=== PATIENT | female | born 2000 | race African-American/Black ===

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

== ENCOUNTER 2021-08-11 02:17 | Emergency (ER) | payer OTHER ==
[2021-08-11] MEDS ORDERED: NA CHLORIDE 0.9% 1,000 ML ONE (02:56)
[2021-08-11] MEDS ORDERED: LABETALOL 20 MG/4ML SYRINGE IV ONE (02:56)
[2021-08-11] MEDS ORDERED: KETOROLAC 30 MG/ML INJ ONE (02:56)
[2021-08-11 03:14] LABS: Urine Blood Negative (Negative); Urine Glucose Negative (Negative); Urine Protein Negative (Negative); Urine Specific Gravity >=1.030 (1.005-1.030)
[2021-08-11 03:33] LABS: Barbiturates NEGATIVE (NEGATIVE); Benzodiazepines NEGATIVE (NEGATIVE); Cocaine NEGATIVE (NEGATIVE); METHAMPHETAM NEGATIVE (NEGATIVE); Methadone NEGATIVE (NEGATIVE); Opiates NEGATIVE (NEGATIVE); Phencyclidine NEGATIVE (NEGATIVE); THC Cannibis POSITIVE (NEGATIVE)
--- NOTE | 2021-08-11 04:23 | ER ---
Nurse's Notes [facility] Name: Hardik Goldstein Age: 20 yrs Sex: Female : 2000 Arrival Date: 08/11/2021 Time: 02:22 Bed 14 Private MD: Diagnosis: Hypertension. Acute headache Presentation: 08/11 02:31 Chief complaint: Patient states: HTN and h/a since yesterday morning. Coronavirus df1 screen: Vaccine status: Patient reports receiving the 2nd dose of the covid vaccine. Client denies travel out of the [place] in the last 14 days. At this time, the client does not indicate any symptoms associated with coronavirus-19. Ebola Screen: Patient negative for fever greater than or equal to 101.5 degrees Fahrenheit, and additional compatible Ebola Virus Disease symptoms Patient denies exposure to infectious person. Patient denies travel to an Ebola-affected area in the 21 days before illness onset. Initial Sepsis Screen: Does the patient meet any 2 criteria? No. Patient's initial sepsis screen is negative. Does the patient have a suspected source of infection? No. Patient's initial sepsis screen is negative. Risk Assessment: Do you want to hurt yourself or someone else? Patient reports no desire to harm self or others. Onset of symptoms was August 10, 2021 at 10:00. 02:31 Method Of Arrival: Ambulatory df1 02:31 Acuity: JENNIFER 3 df1 Triage Assessment: 02:45 General: Appears comfortable, slender, well groomed. dc2 02:45 General: Behavior is calm, cooperative. dc2 02:45 Pain: Also complains of nausea, photophobia. dc2 02:45 Headache History: The patient has had previous headaches and this one is similar to dc2 previous episodes. Pain: Pain began 1 day ago. 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 - Social history:: Smoking status: Patient denies any tobacco usage or history of. Screenin:45 Abuse screen: Denies threats or abuse. Denies injuries from another. Nutritional dc2 screening: No deficits noted. Tuberculosis screening: No symptoms or risk factors identified. 02:45 Fall Risk None identified. No fall in past 12 months (0 pts). No secondary diagnosis (0 dc2 pts). No IV (0 pts). Ambulatory Aid- None/Bed Rest/Nurse Assist (0 pts). Gait- Normal/Bed Rest/Wheelchair (0 pts) Mental Status- Oriented to own ability (0 pts). Total Cedeno Fall Scale indicates No Risk (0-24 pts). Assessment: 02:45 General: Appears in no apparent distress. slender, well groomed, well developed, dc2 Behavior is calm, cooperative. Pain: Complains of pain in Frontal lobe headache to both sides Pain does not radiate. Pain currently is 8 out of 10 on a pain scale. Quality of pain is described as aching. Neuro: No deficits noted. Level of Consciousness is Oriented to person, place, time, situation, Reports headache frontal area, since Waking up on Sunday morning. photophobia Denies blurred vision dizziness. 02:45 Cardiovascular: Denies chest pain, shortness of breath, Heart tones present. dc2 Respiratory: Airway is patent Breath sounds are clear bilaterally. GI: No deficits noted. No signs and/or symptoms were reported involving the gastrointestinal system. Abdomen is flat, non-distended, Bowel sounds present X 4 quads. : No signs and/or symptoms were reported regarding the genitourinary system. Urine is clear. Derm: No deficits noted. No signs and/or symptoms reported regarding the dermatologic system. Musculoskeletal: No deficits noted. No signs and/or symptoms reported regarding the musculoskeletal system. Vital Signs: 02:31 BP 154 / 109; Pulse 77; Resp 18; Temp 97.7; Pulse Ox 100% on R/A; Weight 58.97 kg; df1 Height 5 ft. 2 in. (157.48 cm); Pain 10/10; 03:09 BP 132 / 98; Pulse 63; Resp 17; Pulse Ox 100% ; Pain 8/10; dc2 03:45 BP 118 / 87; Pulse 64; Resp 16; Pulse Ox 100% ; Pain 0/10; dc2 04:30 BP 115 / 86; Pulse 59; Resp 16; Temp 97.5(O); Pulse Ox 100% on R/A; Pain 0/10; dc2 02:31 Body Mass Index 23.78 (58.97 kg, 157.48 cm) df1 ED Course: 02:22 Patient arrived in ED. ja2 02:33 Triage completed. df1 02:40 Wilton Valentine MD is Attending Physician. pkl 02:44 Mona Mccallum RN is Primary Nurse. dc2 02:45 Arm band placed on right wrist. dc2 02:45 Patient has correct armband on for positive identification. Placed in gown. Bed in low dc2 position. Call light in reach. Side rails up X 1. Pulse ox on. NIBP on. Door closed. Lights dimmed. Warm blanket given. 02:45 No provider procedures requiring assistance completed. dc2 03:00 Inserted saline lock: 20 gauge in right antecubital area, using aseptic technique. dc2 Blood collected. 03:[address] via stretcher. dc2 03:13 UDS Sent. jb5 03:17 Patient moved back from CT. dc2 03:20 CT Head Brain wo Cont In Process Unspecified. EDMS 04:30 IV discontinued, intact, bleeding controlled, No redness/swelling at site. Pressure dc2 dressing applied. Administered Medications: 03:00 Drug: NS 0.9% 1000 ml Route: IV; Rate: 125 ml/hr; Site: right antecubital; dc2 04:30 Follow up: IV Status: Completed infusion; IV Intake: 250ml dc2 03:02 Drug: Ketorolac 30 mg Route: IVP; Site: right antecubital; dc2 04:00 Follow up: Response: Pain is decreased dc2 03:05 Drug: Labetalol 10 mg Route: IVP; Infused Over: 3 mins; Site: right antecubital; dc2 04:00 Follow up: Response: Pain is decreased dc2 Intake: 04:30 IV: 250ml; Total: 250ml. dc2 Outcome: 04:22 Discharge ordered by . pkl 04:30 Discharged to home ambulatory. dc2 04:30 Condition: stable 04:30 Discharge instructions given to patient, Instructed on discharge instructions, follow up and referral plans. Demonstrated understanding of instructions, follow-up care. 04:48 Patient left the ED. dc2 Signatures: Dispatcher [employer] Wilton Vera MD MD pkl Broussard, Jennifer jb5 Damari Woodard Dawn df1 Mona Mccallum RN RN dc2 Corrections: (The following items were deleted from the chart) 03:17 03:14 BP 132 / 98; Pulse 63bpm; Resp 17bpm; Pulse Ox 100%; Pain 8/10; dc2 dc2
--- NOTE | 2021-08-11 04:23 | EDPHYS ---
Physician Documentation [facility] Name: Hardik Goldstein Age: 20 yrs Sex: Female : 2000 Arrival Date: 08/11/2021 Time: 02:22 Bed 14 Private MD: ED Physician Wilton Valentine HPI: 08/11 02:49 This 20 yrs old Black Female presents to ER via Ambulatory with complaints of Headache, pkl High Blood Pressure. 02:49 The patient complains of pain to the top of head and forehead. The patient describes pkl the headache as constant. Onset: The symptoms/episode began/occurred yesterday. Associated signs and symptoms: Pertinent positives: hypertension. 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 - Social history:: Smoking status: Patient denies any tobacco usage or history of. ROS: 02:49 Eyes: Negative for injury, pain, redness, and discharge, ENT: Negative for injury, pkl pain, and discharge, Neck: Negative for injury, pain, and swelling, Cardiovascular: Negative for chest pain, palpitations, and edema, Respiratory: Negative for shortness of breath, cough, wheezing, and pleuritic chest pain, Abdomen/GI: Negative for abdominal pain, nausea, vomiting, diarrhea, and constipation, Back: Negative for injury and pain, : Negative for injury, bleeding, discharge, and swelling, MS/Extremity: Negative for injury and deformity, Skin: Negative for injury, rash, and discoloration, Neuro: Negative for headache, weakness, numbness, tingling, and seizure. Exam: 02:49 Head/Face: Normocephalic, atraumatic. Eyes: Pupils equal round and reactive to light, pkl extra-ocular motions intact. Lids and lashes normal. Conjunctiva and sclera are non-icteric and not injected. Cornea within normal limits. Periorbital areas with no swelling, redness, or edema. ENT: Nares patent. No nasal discharge, no septal abnormalities noted. Tympanic membranes are normal and external auditory canals are clear. Oropharynx with no redness, swelling, or masses, exudates, or evidence of obstruction, uvula midline. Mucous membranes moist. Neck: Trachea midline, no thyromegaly or masses palpated, and no cervical lymphadenopathy. Supple, full range of motion without nuchal rigidity, or vertebral point tenderness. No Meningismus. Chest/axilla: Normal chest wall appearance and motion. Nontender with no deformity. No lesions are appreciated. Cardiovascular: Regular rate and rhythm with a normal S1 and S2. No gallops, murmurs, or rubs. Normal PMI, no JVD. No pulse deficits. Respiratory: Lungs have equal breath sounds bilaterally, clear to auscultation and percussion. No rales, rhonchi or wheezes noted. No increased work of breathing, no retractions or nasal flaring. Abdomen/GI: Soft, non-tender, with normal bowel sounds. No distension or tympany. No guarding or rebound. No evidence of tenderness throughout. Back: No spinal tenderness. No costovertebral tenderness. Full range of motion. Skin: Warm, dry with normal turgor. Normal color with no rashes, no lesions, and no evidence of cellulitis. MS/ Extremity: Pulses equal, no cyanosis. Neurovascular intact. Full, normal range of motion. Neuro: Awake and alert, GCS 15, oriented to person, place, time, and situation. Cranial nerves II-XII grossly intact. Motor strength 5/5 in all extremities. Sensory grossly intact. Cerebellar exam normal. Normal gait. Vital Signs: 02:31 BP 154 / 109; Pulse 77; Resp 18; Temp 97.7; Pulse Ox 100% on R/A; Weight 58.97 kg; df1 Height 5 ft. 2 in. (157.48 cm); Pain 10/10; 03:09 BP 132 / 98; Pulse 63; Resp 17; Pulse Ox 100% ; Pain 8/10; dc2 03:45 BP 118 / 87; Pulse 64; Resp 16; Pulse Ox 100% ; Pain 0/10; dc2 04:30 BP 115 / 86; Pulse 59; Resp 16; Temp 97.5(O); Pulse Ox 100% on R/A; Pain 0/10; dc2 02:31 Body Mass Index 23.78 (58.97 kg, 157.48 cm) df1 MDM: 02:40 Patient medically screened. pkl 04:19 Data reviewed: vital signs, nurses notes, radiologic studies, CT scan. ED course: pkl Patient feeling better. Discussed lab and CT Scan results with patient. Advised to follow up with martha PCP/ Neurologist in 2 to 3 days. 08/11 02:49 Order name: UDS; Complete Time: 04:16 pkl 08/11 03:13 Order name: Urine Dipstick-Ancillary; Complete Time: 04:16 EDMS 08/11 02:49 Order name: CT Head Brain wo Cont pkl Administered Medications: 03:00 Drug: NS 0.9% 1000 ml Route: IV; Rate: 125 ml/hr; Site: right antecubital; dc2 04:30 Follow up: IV Status: Completed infusion; IV Intake: 250ml dc2 03:02 Drug: Ketorolac 30 mg Route: IVP; Site: right antecubital; dc2 04:00 Follow up: Response: Pain is decreased dc2 03:05 Drug: Labetalol 10 mg Route: IVP; Infused Over: 3 mins; Site: right antecubital; dc2 04:00 Follow up: Response: Pain is decreased dc2 Disposition Summary: 08/11/21 04:22 Discharge Ordered Location: Home pkl Problem: new pkl Symptoms: have improved pkl Condition: Stable pkl Diagnosis - Hypertension. Acute headache pkl Followup: pkl - With: Private Physician - When: 2 - 3 days - Reason: Re-evaluation by your physician Forms: - Medication Reconciliation Form pkl - Thank You Letter pkl - Antibiotic Education pkl - Prescription Opioid Use pkl Signatures: Dispatcher [employer] EDWilton Parikh MD MD pkl Zoie Matta df1 Mona Mccallum RN RN dc2
[2021-08-11 04:57] VITALS: O2SAT 100
[2021-08-11 05:01] VITALS: BP 115/86; TEMP 97.5
--- NOTE | 2021-08-11 10:24 | RAD REPORT ---
EXAM DESCRIPTION: CT - Head Brain Wo Cont - 08/11/2021 6:53 am CLINICAL HISTORY: HEADACHE COMPARISON: CT head August 29, 2020 TECHNIQUE: Multiple helical axial tomographic images were obtained of the head without intravenous c ontrast. This exam was performed according to our departmental dose-optimization program, which inclu pranay automated exposure control, adjustment of the mA and/or kV according to patient size and/or use o f iterative reconstruction technique. FINDINGS: There is no acute intracranial hemorrhage. No mass. No midline shift. No ventriculomegaly. Gunderson-white matter differentiation is maintained. Cerebellar tonsils again noted to project mildly wi thin the foramen magnum Paranasal sinuses are clear. Mastoid air cells and middle ear spaces are clear. Orbits and orbital co ntents are unremarkable. Osseous structures are unremarkable. Surrounding soft tissues are unremarkable. IMPRESSION: 1. No acute intracranial process. 2. Possible Chiari I malformation versus cerebellar tonsillar ectopia again noted. Electronically signed by: Kelby Sweeney MD 08/11/2021 3:55 AM CDT Due to temporary technical issues with the PACS/Fluency reporting system, reports are being signed by the in house radiologists without review as a courtesy to insure prompt reporting. The interpreting radiologist is fully responsible for the content of the report.
--- OUTSIDE RECORDS SUMMARY | 2021-08-20 10:30 | XMS REPORT | Continuity of Care Document ---
:2000 Author Organization [facility] Address [address] [place] [address] Care Team Providers Name Role Phone JUAN CARLOS MORA Attending Clinician Unavailable ROD Attending Clinician Unavailable LUIS DANIEL Attending Clinician Unavailable Chirag ALFORD Attending Clinician Unavailable Payers Payer Name Policy Type Policy Number Effective Date Expiration Date S ource OPEN ACCESS [id number] HMO/POS/EPO/PPO - AETNA [facility] [id number] [facility] [id number] 2020 CHOICE MEDICAID 00:00:00 Problems Condition Condition Condition Status Onset Resolution Last Treating Co mments Source Name Details Category Date Date Treatment Clinician Date No known No known Disease [facility] problems problems of Medicin e Allergies, Adverse Reactions, Alerts Allergy Allergy Status Severity Reaction(s) Onset Inactive Treating Comm ents Source Name Type Date Date Clinician NO KNOWN Drug Active Univers ALLERGIE Class ity of [facility] Social History Social Habit Start Date Stop Date Quantity Comments Source Exposure to Not sure [facility] Anoop eagle SARS-CoV-2 of Medicine (event) Tobacco use and 2020-09-07 2020-09-07 Never used [facility] Co llege exposure 00:00:00 00:00:00 of Medicine Alcohol intake 2020-09-07 2020-09-07 Lifetime [facility] Col lege 00:00:00 00:00:00 non-drinker of Medicine (finding) Sex Assigned At [birth year] [facility] [employer] 00:00:00 00:00:00 of Medicine Smoking Status Start Date Stop Date Source Never smoker [facility] o f Medicine Medications Ordered Filled Start Stop Current Ordering Indication Dosage Frequency Signature Comments Components Source Medication Medication Date Date Medication? Clinician (SIG) Name Name DENI 2019-10 Yes [facility] 150-35 1-30 College MCG/24HR 00:00: of patch 00 Medicin e lactulose 2019-10 Yes [facility] (CHRONULAC) 1-18 [place] 10 GM/15ML 00:00: of solution 00 Medicin e Vital Signs Vital Name Observation Time Observation Value Comments Source Systolic blood 2020-09-07 16:34:00 131 mm[Hg] [facility] pressure Medicine Diastolic blood 2020-09-07 16:34:00 90 mm[Hg] [facility] pressure Medicine Heart rate 2020-09-07 16:34:00 92 /min [facility] Body temperature 2020-09-07 16:34:00 36.22 [facility] Respiratory rate 2020-09-07 16:34:00 16 /min [facility] Body height 2020-09-07 16:34:00 157.5 cm [facility] Body weight 2020-09-07 16:34:00 61.689 kg [facility] BMI 2020-09-07 16:34:00 24.87 kg/m2 [facility] Oxygen saturation in 2020-09-07 16:34:00 96 /min [facility] Arterial blood by [facility] Pulse oximetry Procedures This patient has no known procedures. Plan of Care Planned Activity Planned Date Details Comments Source Future Scheduled Test HPV VACCINE (1 - [facility] of 2-dose series) [code Medicin e = HPV VACCINE (1 - 2-dose series)] Future Scheduled Test TETANUS SHOT (ADULT) [facility] [code = TETANUS SHOT Medicin e (ADULT)] Future Scheduled Test HEPATITIS C SCREENING [facility] [code = HEPATITIS C Medicine SCREENING] Future Scheduled Test FLU VACCINE > 6 [facility] MONTHS [code = FLU Medicine VACCINE > 6 MONTHS] Encounters Start End Encounter Admission Attending Care Care Encounter Source Date/Time Date/Time Type Type Clinicians Facility Department ID 2021-06-16 2021-06-16 Outpatient MARILEE MORA [facility] [id number] [facility] 14:02:04 14:23:58 YOLIS eagle of Medicin e 2021-04-06 2021-04-06 Outpatient [facility] [id number] [place] 00:00:00 00:00:00 Jessee MONZON i DANO 2021-02-09 2021-02-09 Outpatient [facility] [id number] [place] 00:00:00 00:00:00 NICOLÁS, 311 Method i DANO 2020-12-13 2020-12-13 Emergency X LUIS DANIELANIVAL ERT [id number] Univers 18:26:00 18:26:00 KERA steen [facility] 2020-09-07 2020-09-07 Office Manny Beard [facility] [id number] [facility] 10:28:58 11:11:36 Visit AMBULATOR [id number] College Y [id number] of [id number] Medi mildred 300 e Results This patient has no known results.
== END 2021-08-11 04:48 | disposition home or self-care (01) ==
LOC: ER 02:17
DX: I10 Essential (primary) hypertension (principal)
CPT/HCPCS: 96361; 81003; 80307; 70450; 96375; 96374; 99284; J7030

== ENCOUNTER 2024-09-28 18:51 | Emergency (ER) | payer OTHER ==
--- NOTE | 2024-09-28 19:41 | RAD REPORT ---
EXAMINATION: ONE VIEW CHEST XR CLINICAL INDICATION: COUGH TECHNIQUE: Frontal chest projection is submitted. Examination is limited by patient positioning and t echnique. COMPARISON: 03/02/2013 FINDINGS: The lungs are well inflated and clear. The heart is normal in size. No displaced fractures identified . IMPRESSION: No acute intrathoracic abnormalities.
[2024-09-28 19:49] LABS: Absolute Lymphocytes (CBC) 1.1 K/uL (0.7-4.9); Absolute Monocytes 0.6 K/uL (0.1-1.3); Absolute Neutrophil 10.7 K/uL (1.8-8.0); Basophils % 0.1 % (0-1.3); Eosinophils % 0.1 % (0-4.4); Hematocrit 44.2 % (36.0-45.0); Hemoglobin 14.4 g/dL (12.0-15.0); Lymphocytes % 8.9 % (15.3-44.8); MCH 29.6 pg (27.0-35.0); MCHC 32.6 g/dL (32.0-36.0); MCV 90.9 fL (80-100); MPV 10.7 fL (7.6-11.3); Monocytes % 5.2 % (3.3-12.3); Neutrophils % 85.7 % (41.7-73.7); Platelets 222 thou/uL (152-406); RBC Red Blood Cell Count 4.86 M/uL (3.86-4.86)
[2024-09-28 20:03] LABS: Anion Gap 11.7 mEq/L (5.0-15.0); Potassium 3.7 mEq/L (3.5-5.1)
[2024-09-28 20:26] LABS: Specific Gravity > 1.030 (1.005-1.030)
[2024-09-28 20:27] LABS: Specific Gravity > 1.030 (1.005-1.030); Urine Bacteria None Seen /HPF (<20); Urine Bilirubin NEGATIVE (Negative); Urine Blood Negative (Negative); Urine Clarity Extremely Turbid (Clear); Urine Color Light-Yellow (Yellow); Urine Crystals Unidentified Few /HPF (None Seen); Urine Culture Reflex Order NOT NEEDED; Urine Glucose NEGATIVE (Negative); Urine Ketones NEGATIVE (Negative); Urine Microscopic Reflex YN ORDER UMIC; Urine Mucus Slight /HPF (None Seen); Urine Nitrite NEGATIVE (Negative); Urine Protein TRACE (Negative); Urine RBC <5 /HPF (None Seen); Urine Urobilinogen 1+ (Normal); Urine WBC <5 /HPF (<5); Urine WBC Clump Rare /HPF (None Seen)
--- NOTE | 2024-09-28 20:39 | ER ---
Nurse's Notes [facility] Name: Hardik Goldstein Age: 23 yrs Sex: Female : 2000 Arrival Date: 09/28/2024 Time: 18:51 Bed 18 Private MD: Diagnosis: Cough;Shortness of breath Presentation: 09/28 19:00 Chief complaint: Patient states: SHORT OF BREATH WHEN TALKING, TIRED AND COUGHING SINCE kj2 SUNDAY. Coronavirus screen: Client denies travel out of the [place] in the last 14 days. Ebola Screen: No symptoms or risks identified at this time. Initial Sepsis Screen: Does the patient meet any 2 criteria? No. Patient's initial sepsis screen is negative. Does the patient have a suspected source of infection? No. Patient's initial sepsis screen is negative. Risk Assessment: Do you want to hurt yourself or someone else? Patient reports no desire to harm self or others. Onset of symptoms was September 23, 2024. 19:00 Method Of Arrival: Ambulatory kj2 19:00 Acuity: JENNIFER 3 kj2 Triage Assessment: 19:00 General: Appears in no apparent distress. Behavior is calm, cooperative. Pain: Denies kj2 pain. Neuro: Level of Consciousness is awake, alert, Oriented to person, place, time. 19:00 Cardiovascular: Patient's skin is warm and dry. Respiratory: Reports shortness of kj2 breath on exertion since 09/23/2024 Onset: The symptoms/episode began/occurred 09/23, the patient has mild shortness of breath. GI: No signs and/or symptoms were reported involving the gastrointestinal system. : No signs and/or symptoms were reported regarding the genitourinary system. 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 - Infectious Disease History:: Denies. - Social history:: Smoking status: Patient denies any tobacco usage or history of. - Family history:: not pertinent. - Hospitalizations: : No recent hospitalization is reported. Screenin:00 [facility] ED Fall Risk Assessment (Adult) History of falling in the last 3 months, kj2 including since admission No falls in past 3 months (0 pts) Confusion or Disorientation No (0 pts) Intoxicated or Sedated No (0 pts) Impaired Gait No (0 pts) Mobility Assist Device Used No (0 pt) Altered Elimination No (0 pt) Score/Fall Risk Level 0 - 2 = Low Risk Maintained a safe environment, Hourly rounding (assess needs \T\ fall precautionary measures) done. Abuse screen: Denies threats or abuse. Denies injuries from another. Nutritional screening: No deficits noted. Tuberculosis screening: No symptoms or risk factors identified. Assessment: 19:00 General: SEE TRIAGE ASSESSMENT. Pain: Denies pain. Neuro: Level of Consciousness is kj2 awake, alert, obeys commands. Cardiovascular: Patient's skin is warm and dry. Respiratory: Airway is patent Respiratory effort is unlabored. 20:00 Reassessment: Patient appears in no apparent distress at this time. Patient and/or kj2 family updated on plan of care and expected duration. Pain level reassessed. Patient is alert, oriented x 3, equal unlabored respirations, skin warm/dry/pink. Cardiovascular: Rhythm is sinus rhythm. Respiratory: MINIMAL RHONCHI IN UPPER LOBES. 20:52 Reassessment: Patient appears in no apparent distress at this time. Patient and/or kj2 family updated on plan of care and expected duration. Pain level reassessed. Patient is alert, oriented x 3, equal unlabored respirations, skin warm/dry/pink. Vital Signs: 19:00 BP 141 / 90; Pulse 79; Resp 20; Pulse Ox 99% on R/A; Weight 63.5 kg; Height 5 ft. 2 in. kj2 ; Pain 0/10; 20:00 BP 127 / 94; Pulse 76; Resp 20; Pulse Ox 100% ; kj2 20:54 BP 124 / 88; Pulse 70; Resp 18; Temp 98; Pulse Ox 99% on R/A; kj2 19:00 Body Mass Index 25.61 (63.50 kg, 157.48 cm) kj2 19:00 Pain Scale: Adult kj2 ED Course: 18:54 Patient arrived in ED. ra3 18:57 Aryan Magaña, RN is Primary Nurse. bp 18:59 Harris, Rick, MD is Attending Physician. rn 19:00 Patient has correct armband on for positive identification. Bed in low position. Call kj2 light in reach. Adult w/ patient. Provided Education on: CALL LIGHT. 19:19 Triage completed. kj2 19:26 Arm band placed on Patient placed in an exam room, on a stretcher. kj2 19:35 Inserted saline lock: 20 gauge in right antecubital area, using aseptic technique. kj2 Blood collected. Flushed with 10 mL NS. 19:37 XRAY Chest (1 view) In Process Unspecified. EDMS 20:12 Urinalysis w/ reflexes Sent. vk 20:19 Test, Urine Sent. vk 20:19 Urine collected: clean catch specimen, clear. vk 20:37 EKG done, by ED staff. vk 20:52 No provider procedures requiring assistance completed. kj2 20:56 IV discontinued, intact, bleeding controlled, No redness/swelling at site. Pressure kj2 dressing applied. Administered Medications: No medications were administered Medication: 19:26 VIS not applicable for this client. kj2 Outcome: 20:38 Discharge ordered by MD. rn 20:55 Discharged to home ambulatory, with family, kj2 20:55 Condition: stable 20:55 Discharge instructions given to patient, Instructed on discharge instructions, follow up and referral plans. Demonstrated understanding of instructions, follow-up care, 21:25 Patient left the ED. kj2 Signatures: Dispatcher [employer] EDSC Rick Harris MD MD rn Peltier, Brian, RN RN Teri Marvin Vivian vk Jordan, Krystal, RN RN kj2
--- NOTE | 2024-09-28 20:39 | EDPHYS ---
Physician Documentation [facility] Name: Hardik Goldstein Age: 23 yrs Sex: Female : 2000 Arrival Date: 09/28/2024 Time: 18:51 Bed 18 Private MD: ED Physician Rick Harris HPI: 09/28 19:22 This 23 yrs old Black Female presents to ER via Ambulatory with complaints of Shortness rn Of Breath. 19:22 The patient has shortness of breath at rest. Onset: The symptoms/episode began/occurred rn 4 day(s) ago. Duration: The symptoms are intermittent. The patient's shortness of breath is aggravated by coughing, is alleviated by nothing. Associated signs and symptoms: Pertinent positives: productive cough, Pertinent negatives: fever, hemoptysis. Severity of symptoms: At their worst the symptoms were moderate in the emergency department the symptoms have improved. The patient has not experienced similar symptoms in the past. The patient has been recently seen by a physician:. Patient reports shortness of breath for the last 4 days, associated with nasal congestion and productive cough. No hemoptysis. No history of DVT or PE. No trauma. No surgery or procedure recently. No lower extremity pain or swelling. Feels like it is allergies or infection, seen by outside provider and prescribed azithromycin along with steroids and inhaler. She does not feel like the inhaler or nebulizer treatments are helping. Barely on day 2 of Zithromax.. GIRL FRIDAY: 20:55 Not kj2 Historical: - Allergies: 19:19 No Known Allergies; kj2 - Home Meds: 19:20 nadolol 40 mg Oral tab 1 tab once daily [Active]; Ubrelvy 100 mg Oral tab [Active]; kj2 - PMHx: 19:20 chiari malformation; Hypertensive disorder; Migraines; kj2 - Immunization history:: Adult Immunizations unknown. - Infectious Disease History:: Denies. - Social history:: Smoking status: Patient denies any tobacco usage or history of. - Family history:: not pertinent. - Hospitalizations: : No recent hospitalization is reported. ROS: 19:22 Constitutional: Negative for fever, chills, and weight loss, Cardiovascular: Negative rn for chest pain, palpitations, and edema, Respiratory: Positive for cough and shortness of breath, no pleuritic pain Abdomen/GI: Negative for abdominal pain, nausea, vomiting, diarrhea, and constipation, MS/Extremity: Negative for injury and deformity, Skin: Negative for injury, rash, and discoloration, Neuro: Negative for headache, weakness, numbness, tingling, and seizure, Exam: 19:22 Constitutional: This is a well developed, well nourished patient who is awake, alert, rn and in no acute distress. Head/Face: Normocephalic, atraumatic. ENT: No stridor Cardiovascular: Regular rate and rhythm . No pulse deficits. Respiratory: Speaking full sentences, no wheezing noted, no retractions, mild tachypnea noted Skin: No cyanosis MS/ Extremity: Pulses equal, no cyanosis. Neurovascular intact. Full, normal range of motion. Equal circumference. Neuro: Awake and alert, GCS 15 20:37 ECG was reviewed by the Attending Physician. rn Vital Signs: 19:00 BP 141 / 90; Pulse 79; Resp 20; Pulse Ox 99% on R/A; Weight 63.5 kg; Height 5 ft. 2 in. kj2 ; Pain 0/10; 20:00 BP 127 / 94; Pulse 76; Resp 20; Pulse Ox 100% ; kj2 20:54 BP 124 / 88; Pulse 70; Resp 18; Temp 98; Pulse Ox 99% on R/A; kj2 19:00 Body Mass Index 25.61 (63.50 kg, 157.48 cm) kj2 19:00 Pain Scale: Adult kj2 MDM: 18:59 Medical Screening Exam initiated rn 20:25 Differential diagnosis: Anemia Anxiety Reaction pneumonia, Pneumothorax pulmonary rn edema. Data reviewed: vital signs, nurses notes, lab test result(s), radiologic studies, plain films, and as a result, I will discharge patient. Counseling: I had a detailed discussion with the patient and/or guardian regarding the historical points, exam findings, and any diagnostic results supporting the discharge/admit diagnosis, lab results, radiology results. 20:37 Special discussion: I discussed with the patient/guardian in detail that at this point rn there is no indication for admission to the hospital. It is understood, however, that if the symptoms persist or worsen the patient needs to return immediately for re-evaluation. 09/28 19:19 Order name: CBC with Diff; Complete Time: 20:56 rn 09/28 19:19 Order name: Basic Metabolic Panel; Complete Time: 20:15 rn 09/28 19:19 Order name: Urinalysis w/ reflexes; Complete Time: 20:28 rn 09/28 19:19 Order name: D-Dimer; Complete Time: 20:15 rn 09/28 19:43 Order name: Test, Urine; Complete Time: 20:28 rn 09/28 20:47 Order name: CBC Smear Scan; Complete Time: 20:56 EDMS 09/28 19:11 Order name: XRAY Chest (1 view); Complete Time: 19:42 rn 09/28 19:19 Order name: EKG; Complete Time: 19:19 rn 09/28 19:19 Order name: IV Start; Complete Time: 20:12 rn 09/28 19:19 Order name: EKG - Nurse/Tech; Complete Time: 20:37 rn EC:37 Rate is 80 beats/min. Rhythm is regular. QRS [place] is Normal. DC interval is normal. QRS rn interval is normal. QT interval is normal. No Q waves. T waves are Normal. No ST changes noted. Clinical impression: NSR w/ Non-specific ST/T Changes. Interpreted by me. Reviewed by me. Administered Medications: No medications were administered Disposition Summary: 09/28/24 20:38 Discharge Ordered Notes: Location: Home rn Problem: new rn Symptoms: have improved rn Condition: Stable rn Diagnosis - Cough rn - Shortness of breath rn Followup: rn - With: Private Physician - When: As needed - Reason: Recheck today's complaints, Re-evaluation by your physician Discharge Instructions: - Discharge Summary Sheet rn - Shortness of Breath, Adult rn - Cough, Adult rn Forms: - Medication Reconciliation Form rn - Antibiotic learning support assistant - Prescription Opioid Use rn - Patient Portal Instructions rn - Leadership Thank You Letter rn - Work release form vk Signatures: Dispatcher [employer] EDMS Rick Harris MD MD rn Jordan, Krystal, RN RN kj2 Corrections: (The following items were deleted from the chart) 19:43 19:43 Test, Urine+UC.LAB.BRZ ordered. EDPA EDMS
[2024-09-28 20:47] LABS: Blood Morphology Comment NOT SEEN (NOT SEEN); Platelet Estimate ADEQ; White Blood Cell Scan OK (OK)
[2024-09-28 21:46] VITALS: BP 124/88; TEMP 98; O2SAT 99
--- NOTE | 2024-09-29 11:07 | EKG ---
Test Date: 2024-09-28 Test Time: 20:35:13 Professional Application Designer: KECIA MEASUREMENT RESULTS: Intervals: Rate: 80 NV: 160 QRSD: 70 QT: 382 QTc: 440 [place]: P: 50 NV: 160 QRS: 64 T: 49 INTERPRETIVE STATEMENTS: Sinus rhythm with marked sinus arrhythmia Otherwise normal ECG Compared to ECG 03/02/2013 00:27:41 No significant changes Electronically Signed On 09-29-24 11:06:44 TEST CELL TECHNICIAN by Ross Dickey
== END 2024-09-28 21:25 | disposition home or self-care (01) ==
LOC: ER 18:51
DX: R05.9 Cough, unspecified (principal); R06.02 Shortness of breath; I10 Essential (primary) hypertension
CPT/HCPCS: 36415; 71045; 80048; 81001; 81025; 85025; 85379; 93005; 99284